=== PATIENT | male | born 1970 | race Caucasian/White ===

== ENCOUNTER 2018-10-15 11:08 | Day surgery (SDC) | payer OTHER ==
[~2018-10-15] VITALS: Ht 185.4 cm; Wt 353.0 kg
--- NOTE | 2018-10-15 11:56 | NUR ---
10/15/18 1156 Corrine Caal FIRST IV UNSUCCESS IN R WRIST SECOND IV SUCCESS IN R AC
[2018-10-15] MEDS ORDERED: VICODIN 5-3001 EACH (12:00)
[2018-10-15] MEDS ORDERED: CLEM1.34 (12:01)
== END 2018-10-15 12:22 | disposition home or self-care (01) ==
LOC: ORSCSDS 11:08
DX: R10.9 Unspecified abdominal pain (principal); Z53.9 Procedure and treatment not carried out, unspecified reason; K92.1 Melena
CPT/HCPCS: 82947; J7120

== ENCOUNTER → 2018-10-17 | Outpatient (CLI) | payer OTHER ==
[~2018-10-17] MED LIST: CLEM1.34; VICODIN 5-3001 EACH
[2018-10-17 09:05] LABS: BASOPHILS ABSOLUTE AUTO 0.06 K/mm3 (0.00-0.23); BASOPHILS PERCENT AUTO 1 % (0-2); EOSINOPHILS ABSOLUTE AUTO 0.12 K/mm3 (0.00-0.68); EOSINOPHILS PERCENT AUTO 1 % (0-6); Hematocrit 48.8 % (37.0-53.0); Hemoglobin 17.3 g/dL (13.5-17.5); IMMATURE GRAN ABSOLUTE AUTO 0.03 K/mm3 (0.00-0.10); IMMATURE GRAN PERCENT AUTO 0 % (0-1); LYMPHOCYTES ABSOLUTE AUTO 2.14 K/mm3 (0.84-5.20); LYMPHOCYTES PERCENT AUTO 19 % (21-46); MONOCYTES ABSOLUTE AUTO 0.58 K/mm3 (0.16-1.47); MONOCYTES PERCENT AUTO 5 % (4-13); Mean Corpuscular HGB 31.6 pg (26.0-34.0); Mean Corpuscular HGB Conc 35.5 g/dL (31.5-36.5); Mean Corpuscular Volume 89 fL (80-100); Mean Platelet Volume 10.7 fL (9.1-12.4); NEUTROPHILS ABSOLUTE AUTO 8.27 K/mm3 (1.96-9.15); NEUTROPHILS PERCENT AUTO 74 % (41-73); Platelet Count 274 K/mm3 (150-400); RDW Coefficient Variation 12.3 % (11.7-14.2); RDW Standard Deviation 39.8 fL (35.1-46.3); Red Blood Cell Count 5.48 M/mm3 (4.30-5.90)
[2018-10-17 09:13] LABS: Alanine Aminotransfer (ALT/SGP 64 U/L (12-78); Albumin, Blood 4.6 g/dL (3.4-5.0); Albumin/Globulin Ratio 1.2 (0.8-1.8); Alk Phos 93 U/L (40-126); Anion Gap 15 mmol/L (6-16); Aspartate Aminotrans (AST/SGOT 30 U/L (12-37); Bilirubin, Total 0.5 mg/dL (0.1-1.0); Blood Urea Nitrogen 10 mg/dL (8-24); Bun/Creatinine Ratio 9.1 (12.0-20.0); CO2, Blood 23 mmol/L (21-32); Calcium, Blood 8.7 mg/dL (8.5-10.1); Chloride, Blood 100 mmol/L (98-108); Globulin, Blood 3.8 g/dL (2.2-4.0); Glomerular Filtration Rate >60 (60-); Glucose, Blood 174 mg/dL (70-99); Potassium, Blood 3.9 mmol/L (3.5-5.5); Sodium, Blood 138 mmol/L (136-145); Total Protein, Blood 8.4 g/dL (6.4-8.2)
== END | disposition home or self-care (01) ==
LOC: LAB SHORT 08:55 → LAB EV 08:55
PROVIDERS: Physician Assistant
DX: M79.675 Pain in left toe(s) (principal)
CPT/HCPCS: 80053; 84550; 85025

== ENCOUNTER 2018-11-10 17:13 | Observation (INO) | payer OTHER ==
[~2018-11-10] VITALS: Ht 185.4 cm; Wt 160.2 kg
[~2018-11-10 17:13] MED LIST changes: +CETI5 PO; -CLEM1.34
[2018-11-10] MEDS ORDERED: ZESTORETIC 20-251 EA PO (17:50)
[2018-11-10] MEDS ORDERED: Norco 5-325 Ta1 EACH PO (17:50)
[2018-11-10] MEDS ORDERED: Zestril40 MG (17:50)
[2018-11-10] MEDS ORDERED: Indomethacin50 MG PO (17:50)
[2018-11-10 18:13] LABS: BASOPHILS ABSOLUTE AUTO 0.06 K/mm3 (0.00-0.23); BASOPHILS PERCENT AUTO 1 % (0-2); EOSINOPHILS ABSOLUTE AUTO 0.25 K/mm3 (0.00-0.68); EOSINOPHILS PERCENT AUTO 3 % (0-6); Hematocrit 46.1 % (37.0-53.0); Hemoglobin 15.6 g/dL (13.5-17.5); IMMATURE GRAN ABSOLUTE AUTO 0.01 K/mm3 (0.00-0.10); IMMATURE GRAN PERCENT AUTO 0 % (0-1); LYMPHOCYTES ABSOLUTE AUTO 2.71 K/mm3 (0.84-5.20); LYMPHOCYTES PERCENT AUTO 33 % (21-46); MONOCYTES ABSOLUTE AUTO 0.47 K/mm3 (0.16-1.47); MONOCYTES PERCENT AUTO 6 % (4-13); Mean Corpuscular HGB 31.5 pg (26.0-34.0); Mean Corpuscular HGB Conc 33.8 g/dL (31.5-36.5); Mean Corpuscular Volume 93 fL (80-100); Mean Platelet Volume 10.2 fL (9.1-12.4); NEUTROPHILS ABSOLUTE AUTO 4.78 K/mm3 (1.96-9.15); NEUTROPHILS PERCENT AUTO 58 % (41-73); Platelet Count 226 K/mm3 (150-400); RDW Coefficient Variation 12.2 % (11.7-14.2); RDW Standard Deviation 41.7 fL (35.1-46.3); Red Blood Cell Count 4.96 M/mm3 (4.30-5.90); White Blood Cell Count 8.28 K/mm3 (4.00-11.30)
[2018-11-10 18:35] LABS: Alanine Aminotransfer (ALT/SGP 61 U/L (12-78); Albumin, Blood 4.3 g/dL (3.4-5.0); Albumin/Globulin Ratio 1.3 (0.8-1.8); Alk Phos 77 U/L (50-136); Anion Gap 7 mmol/L (6-16); Aspartate Aminotrans (AST/SGOT 29 U/L (12-37); Bilirubin, Total 0.5 mg/dL (0.1-1.0); Blood Urea Nitrogen 24 mg/dL (8-24); Bun/Creatinine Ratio 27.3 (12.0-20.0); CO2, Blood 28 mmol/L (21-32); Calcium, Blood 9.5 mg/dL (8.5-10.1); Chloride, Blood 101 mmol/L (98-108); Creatinine, Blood 0.88 mg/dL (0.60-1.20); Globulin, Blood 3.4 g/dL (2.2-4.0); Glomerular Filtration Rate >60 (60-); Glucose, Blood 166 mg/dL (70-99); Sodium, Blood 136 mmol/L (136-145); Total Protein, Blood 7.7 g/dL (6.4-8.2); Troponin I <0.015 ng/mL (0.000-0.040)
[2018-11-10] MEDS ORDERED: LISI20 PO (19:41)
[2018-11-10] MEDS ORDERED: THERA1 EACH PO (19:42)
--- NOTE | 2018-11-10 22:57 | NUR ---
2200 CALLED TO FIRE DISPATCHER, THEY RELATE NSR RATE 60
[2018-11-11 02:23] LABS: CHOL/HDL RATIO 4.1; Cholesterol 155 mg/dL (50-200); HDL Cholesterol 38 mg/dL (>39); LDL/HDL RATIO 2.2; Low Density Lipoprotein Chol 85 mg/dL (0-110); Triglycerides 158 mg/dL (30-160); Very Low Density Lipoprot Chol 31 mg/dL (6-32)
--- NOTE | 2018-11-11 03:27 | NUR ---
NOC SHIFT SUMMARY PT ADMITTED THIS NIGHT FOR CHEST PAIN ONGOING FOR THE PAST TWO DAYS. 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 STATES HE HAS A SEDENTARY POSITION. DENIES PAIN SINCE TIME OF COMING TO FLOOR. THUS FAR HIS TROPONINS HAVE BEEN NEGATIVE. TELE SHOWS NSR RATE 60. ORTHOS SHOW PULSE INCREASE FROM 57 TO 100 FROM LAYING TO STANDING. HE DOES STATE THAT HE FEELS OFF AND THAT HE FEELS SLIGHTLY DIZZY. HE APPEARS IN NO ACUTE DISTRESS. HAS BEEN NPO SINCE MIDNIGHT. WILL CONTINUE TO MONITOR.
--- NOTE | 2018-11-11 19:33 | NUR ---
SHIFT SUMMARY: NO ACUTE CHANGES TO REPORT THIS SHIFT. PT A&O; CALM AND COOPERATIVE WITH CARE. NO C/O PAIN OR NAUSEA THIS SHIFT. PATIENT UP WITH STANDBY ASSIST TO BATHROOM. NUCLEAR STRESS TEST PART 1 THIS SHIFT; EXPECTED PART TWO TOMORROW, Monday. REPORT GIVEN TO ONCOMING RN.
--- NOTE | 2018-11-12 05:13 | NUR ---
CHEMICAL PROCESS ANALYST SUMMARY NO ACUTE CHANGES THIS SHIFT. PT AAOX4 AND INDEPENDENT IN HIS ROOM. DENIES CP TONIGHT. GAVE PAIN MEDS FOR CHRONIC L KNEE AND LEG PAIN, PT ALSO REPORTS A NEW PAIN ON TOP OF L FOOT. GAVE PRN COLACE PER PT REQUEST AFTER NO BM IN SEVERAL DAYS. PT TO HAVE 2ND PART OF STRESS TEST LATER TODAY. VSS, WILL CONTINUE TO MONITOR.
--- NOTE | 2018-11-12 17:34 | NUR ---
SHIFT SUMMARY PT INDEPENDENT IN ROOM. PT TO STAY THE NIGHT FOR A CARDIOLOGY CONSULT. DR. Tl MURRAY SPOKE WITH PT AND GAVE PT AN UPDATE OF CURRENT CONDITION. AT BEDSIDE.
--- NOTE | 2018-11-13 06:31 | NUR ---
Rn summary: Patient is alert, oriented and pleasant. Pt is feeling anxious due to receiving info from doctor that he had some irregularity on his heart scan. Pt had received ativan at 1800. He c/o some "heaviness" to chest but felt it was anxiety related. Pt vital signs have been stable. Pt did receive [place] 2 tabs at 2150 for legs, knees and chest with good relief . Did sleep until 0100. Pt medicated with Ativan 2 mg PO at 0300 and has been resting since. Tele shows SR rate 75. Vital signs are stable. Call light in reach.
--- NOTE | 2018-11-13 08:26 | NUR ---
ECHO IN PROGRESS.
--- NOTE | 2018-11-13 08:54 | NUR ---
PT TO [facility].
--- NOTE | 2018-11-13 08:55 | NUR ---
ECHOCARDIOGRAM COMPLETE
[2018-11-13 09:04] LABS: International Normalized Ratio 1.01; Prothrombin Time Results 10.7 Sec (9.7-11.5)
--- NOTE | 2018-11-13 11:08 | NUR ---
REPORT CALLED TO PCU.
--- NOTE | 2018-11-13 11:30 | NUR ---
PT ARRIVED AT 1130 BY BED. RIGHT RADIAL PUNCTURE, TR BAND, AND ARM BOARD IN PLACE AND WNL. PULSES ARE STRONG, FREE OF BLEEDING OR HEMATOMA. PT A BIT TIRED, BUT PAIN FREE, CALL LIGHT IN REACH, BED IN LOWEST POSITION, AND PT EDUCATED TO SAFETY PROTOCOL. WILL BEGIN REMOVING AIR AT 1200, AND CONTINUE TO MONITOR.
--- NOTE | 2018-11-13 18:27 | NUR ---
SHIFT SUMMARY PT ARRIVED ON FLOOR AT 1130. HAS BEEN A&OX3, AND FREE OF PRESENTING SYMPTOMS SINCE BEING ON FLOOR. VENIPUNCTURE SITE ON R. RADIAL HAS BEEN FREE BLEEDING OR HEMATOMA. PULSES ARE GOOD. TR BAND WAS REMOVED AT 1800, SITE CLEANED, ADN WINDOW DRESSING AND ARM BOARD PLACED. PT IS CURRENTLY SITTING UP AND EATING DINNER, WHILE RECEIVING THE REST OF HIS IV ONE BAG OF IV NS. BED IN LOWEST POSITION, CALL LIGHT IN REACH, AND PT EDCUATED TO SAFETY PRECAUTIONS.
--- NOTE | 2018-11-13 19:40 | NUR ---
ASSUMED CARED PT RESTING IN ROOM COMFORTABLY AT THIS TIME. PER DAY SHIFT PT HAD ANGIO TODAY W/ R WRIST SITE FOR TR BAND. AT THIS TIME TR BAND DEFLATED AND REMOVED, ARM BOARD IN PLACE. PT REPORTS NO PAIN TO AREA, SITE INSPECTED W/ DAY SHIFT RN AND STUDENT, SITE WNL, NO HEMATOMAS NOTED, TEGADERM IN PLACE. RESP EVEN UNLABORED ON RA W/ SATS >95%. PT DENIES CP AT THIS TIME. PT INDEPENDENT TO RR. CALL LIGHT IN REACH, PT CALLS APPROPRIATELY.
[2018-11-14 04:54] LABS: Anion Gap 4 mmol/L (6-16); Blood Urea Nitrogen 16 mg/dL (8-24); CO2, Blood 28 mmol/L (21-32); Calcium, Blood 8.9 mg/dL (8.5-10.1); Chloride, Blood 105 mmol/L (98-108); Creatinine, Blood 0.84 mg/dL (0.60-1.20); Glomerular Filtration Rate >60 (60-); Glucose, Blood 109 mg/dL (70-99); Potassium, Blood 4.2 mmol/L (3.5-5.5); Sodium, Blood 137 mmol/L (136-145)
--- NOTE | 2018-11-14 06:24 | NUR ---
SHIFT SUMMARY PT SLEEPING IN ROOM COMFORTABLY AT THIS TIME. NO ACUTE CHANGES IN STATUS T/O NIGHT. PT SLEPT WELL, NO COMPLAINTS T/O NIGHT. TR BAND SITE WNL, NO HEMATOMA NOTED. PT DENIED ANY CP T/O NIGHT. RESP EVEN UNLABORED ON RA W/ SATS >95%. DENIED NEEDS T/O NIGHT. CALL LIGHT IN REACH. PT INDEPENDENT.
[2018-11-14] MEDS ORDERED: ASPI325 PO (09:54)
[2018-11-14] MEDS ORDERED: ACET325 PO (09:54)
--- NOTE | 2018-11-14 10:38 | NUR ---
PT DISCHARGED. PT DISCHARGED AT 1030. PT IN STABLE CONDITION WITH VSS. PT & EDUCATED ON DC INSTRUCTIONS. THIS RN WENT OVER POST ANGIO ENTRY SITE CARE. PT & STATED NO FURTHER QUESTIONS. PT STATED HE WOULD PREFER TO MAKE HIS OWN APPOINTMENT FOR CARIOLOGY FOLLOW UP. NUMBER PROVIDED. NO OTHER CHANGES IN ASSESSMENT BEFORE DC. IV REMOVED & INTACT. PT WHEELED OUT BY REQUIREMENTS ANALYST & DRIVEN HOME BY .
== END 2018-11-14 13:34 | disposition home or self-care (01) ==
LOC: ER 17:13 → MEDS 17:14 → ER 17:14 → MEDS 17:14 → PCU 17:15 → MEDS 21:35 → PCU 11-13 09:24 → MEDS 11-13 09:24 → PCU 11-13 09:25
PROVIDERS: Emergency Medicine; Family Medicine; Internal Medicine Cardiovascular Disease; ADMIT Hospitalist
DX: I20.0 Unstable angina (principal); E11.9 Type 2 diabetes mellitus without complications; E66.01 Morbid (severe) obesity due to excess calories; D75.1 Secondary polycythemia; R00.1 Bradycardia, unspecified; R42 Dizziness and giddiness; E66.9 Obesity, unspecified; M10.9 Gout, unspecified; I11.9 Hypertensive heart disease without heart failure; Z79.82 Long term (current) use of aspirin; Z79.899 Other long term (current) drug therapy
CPT/HCPCS: 36415; 36416; 71046; 78452; 80048; 80053; 80061; 84484; 85025; 85610; 86850; 86900; 86901; 93005; 93010; 93017; 93306; 93458; 96372; 99152; 99153; 99285-25; A9270-GY; A9500; C1769; C1894; J0280; J0690; J0706; J1644; J1650; J2250; J2785; J3010; J7030; Q9967

== ENCOUNTER → 2019-10-04 | Outpatient (CLI) | payer OTHER ==
[~2019-10-04] MED LIST changes: +ACET325 PO; +ASPI325 PO; +Indomethacin50 MG PO; +LISI20 PO; +Norco 5-325 Ta1 EACH PO; +THERA1 EACH PO; +ZESTORETIC 20-251 EA PO; +Zestril40 MG
[2019-10-04 10:38] LABS: BASOPHILS ABSOLUTE AUTO 0.05 K/mm3 (0.00-0.23); BASOPHILS PERCENT AUTO 1 % (0-2); EOSINOPHILS ABSOLUTE AUTO 0.15 K/mm3 (0.00-0.68); EOSINOPHILS PERCENT AUTO 2 % (0-6); Hematocrit 44.4 % (37.0-53.0); Hemoglobin 15.5 g/dL (13.5-17.5); IMMATURE GRAN ABSOLUTE AUTO 0.03 K/mm3 (0.00-0.10); IMMATURE GRAN PERCENT AUTO 0 % (0-1); LYMPHOCYTES ABSOLUTE AUTO 1.98 K/mm3 (0.84-5.20); LYMPHOCYTES PERCENT AUTO 24 % (21-46); MONOCYTES ABSOLUTE AUTO 0.53 K/mm3 (0.16-1.47); MONOCYTES PERCENT AUTO 6 % (4-13); Mean Corpuscular HGB 32.1 pg (26.0-34.0); Mean Corpuscular HGB Conc 34.9 g/dL (31.5-36.5); Mean Corpuscular Volume 92 fL (80-100); Mean Platelet Volume 10.6 fL (9.1-12.4); NEUTROPHILS ABSOLUTE AUTO 5.63 K/mm3 (1.96-9.15); NEUTROPHILS PERCENT AUTO 67 % (41-73); Platelet Count 183 K/mm3 (150-400); RDW Coefficient Variation 12.2 % (11.7-14.2); Red Blood Cell Count 4.83 M/mm3 (4.30-5.90); White Blood Cell Count 8.37 K/mm3 (4.00-11.30)
[2019-10-04 10:50] LABS: Alanine Aminotransfer (ALT/SGP 42 U/L (12-78); Albumin, Blood 4.4 g/dL (3.4-5.0); Albumin/Globulin Ratio 1.1 (0.8-1.8); Alk Phos 73 U/L (40-126); Anion Gap 14 mmol/L (6-16); Aspartate Aminotrans (AST/SGOT 27 U/L (12-37); Bilirubin, Total 0.7 mg/dL (0.1-1.0); Blood Urea Nitrogen 14 mg/dL (8-24); Bun/Creatinine Ratio 13.9 (12.0-20.0); CO2, Blood 25 mmol/L (21-32); Calcium, Blood 9.5 mg/dL (8.5-10.1); Chloride, Blood 100 mmol/L (98-108); Creatinine, Blood 1.01 mg/dL (0.60-1.20); Globulin, Blood 3.9 g/dL (2.2-4.0); Glomerular Filtration Rate >60 (60-); Glucose, Blood 267 mg/dL (70-99); Potassium, Blood 4.3 mmol/L (3.5-5.5); Sodium, Blood 139 mmol/L (136-145); Total Protein, Blood 8.3 g/dL (6.4-8.2)
[2019-10-04 12:31] LABS: International Normalized Ratio 1.02; Prothrombin Time Results 10.9 Sec (9.7-11.5)
== END | disposition home or self-care (01) ==
LOC: LAB SHORT 10:32 → LAB EV 10:32
PROVIDERS: General Practice
DX: I82.409 Acute embolism and thrombosis of unspecified deep veins of unspecified lower extremity (principal)
CPT/HCPCS: 80053; 85025; 85610; 85730

== ENCOUNTER → 2019-12-04 | Outpatient (CLI) | payer OTHER ==
[2019-12-04 09:24] LABS: BASOPHILS ABSOLUTE AUTO 0.07 K/mm3 (0.00-0.23); BASOPHILS PERCENT AUTO 1 % (0-2); EOSINOPHILS ABSOLUTE AUTO 0.21 K/mm3 (0.00-0.68); EOSINOPHILS PERCENT AUTO 3 % (0-6); Hematocrit 47.6 % (37.0-53.0); Hemoglobin 16.3 g/dL (13.5-17.5); IMMATURE GRAN ABSOLUTE AUTO 0.02 K/mm3 (0.00-0.10); IMMATURE GRAN PERCENT AUTO 0 % (0-1); LYMPHOCYTES ABSOLUTE AUTO 2.17 K/mm3 (0.84-5.20); LYMPHOCYTES PERCENT AUTO 28 % (21-46); MONOCYTES ABSOLUTE AUTO 0.59 K/mm3 (0.16-1.47); MONOCYTES PERCENT AUTO 8 % (4-13); Mean Corpuscular HGB 31.3 pg (26.0-34.0); Mean Corpuscular HGB Conc 34.2 g/dL (31.5-36.5); Mean Corpuscular Volume 91 fL (80-100); Mean Platelet Volume 10.6 fL (9.1-12.4); NEUTROPHILS PERCENT AUTO 61 % (41-73); Platelet Count 236 K/mm3 (150-400); RDW Coefficient Variation 12.3 % (11.7-14.2); RDW Standard Deviation 40.2 fL (35.1-46.3); Red Blood Cell Count 5.21 M/mm3 (4.30-5.90); White Blood Cell Count 7.76 K/mm3 (4.00-11.30)
[2019-12-04 09:38] LABS: Alanine Aminotransfer (ALT/SGP 71 U/L (12-78); Albumin, Blood 4.6 g/dL (3.4-5.0); Albumin/Globulin Ratio 1.2 (0.8-1.8); Alk Phos 86 U/L (40-126); Anion Gap 13 mmol/L (6-16); Aspartate Aminotrans (AST/SGOT 52 U/L (12-37); Bilirubin, Total 0.5 mg/dL (0.1-1.0); Blood Urea Nitrogen 10 mg/dL (8-24); CO2, Blood 27 mmol/L (21-32); Calcium, Blood 9.3 mg/dL (8.5-10.1); Chloride, Blood 99 mmol/L (98-108); Creatinine, Blood 1.11 mg/dL (0.60-1.20); Globulin, Blood 3.8 g/dL (2.2-4.0); Glomerular Filtration Rate >60 (60-); Glucose, Blood 229 mg/dL (70-99); Potassium, Blood 4.4 mmol/L (3.5-5.5); Sodium, Blood 139 mmol/L (136-145); Total Protein, Blood 8.4 g/dL (6.4-8.2)
== END | disposition home or self-care (01) ==
LOC: LAB EV 09:18 → LAB SHORT 09:18
PROVIDERS: Physician Assistant
DX: R10.32 Left lower quadrant pain (principal)
CPT/HCPCS: 80053; 83690; 85025

== ENCOUNTER 2020-09-04 07:08 | Emergency (ER) | payer OTHER ==
[~2020-09-04] VITALS: Ht 185.4 cm; Wt 154.2 kg
[~2020-09-04 07:08] MED LIST changes: +ALBU90OI INH; +AMLO5 PO; +CYCLOBENZAPRINE5 MG PO; +ELIQUIS5 MG PO; +HYDR1TAB94 PO; +JARDIANCE25 MG PO; +Lisinopril2.5 MG; +ZESTRIL40 M1 PO
[2020-09-04] MEDS ORDERED: AMOCLA500 (07:23)
[2020-09-04] MEDS ORDERED: SULTRIDS PO (07:23)
== END 2020-09-04 08:00 | disposition home or self-care (01) ==
LOC: ER 07:08
DX: L02.412 Cutaneous abscess of left axilla (principal); E11.9 Type 2 diabetes mellitus without complications; Z88.8 Allergy status to other drugs, medicaments and biological substances; Z79.01 Long term (current) use of anticoagulants
CPT/HCPCS: 10060; 82947; 99283-25

== ENCOUNTER 2021-01-15 14:59 | Emergency (ER) | payer OTHER ==
[~2021-01-15] VITALS: Ht 185.4 cm; Wt 150.6 kg
[~2021-01-15 14:59] MED LIST changes: -AMOCLA875 PO
[2021-01-15] MEDS ORDERED: Norco 5-325 Ta1 EACH PO (20:10)
[2021-01-15] MEDS ORDERED: AMOCLA875 PO (20:10)
== END 2021-01-15 20:21 | disposition home or self-care (01) ==
LOC: ER 14:59
DX: K61.0 Anal abscess (principal); E11.9 Type 2 diabetes mellitus without complications; Z88.2 Allergy status to sulfonamides
CPT/HCPCS: 10060; 46040; 96374-59; 96375-59; 99282-25; A9270; J1170; J2405; J7030

== ENCOUNTER → 2021-01-15 | Outpatient (CLI) | payer OTHER ==
[~2021-01-15] MED LIST changes: +AMOCLA500; +AMOCLA875 PO; +SULTRIDS PO
[2021-01-15 12:18] LABS: Anion Gap 11 mmol/L (6-16); Blood Urea Nitrogen 14 mg/dL (8-24); Bun/Creatinine Ratio 13.7 (12.0-20.0); CO2, Blood 26 mmol/L (21-32); Calcium, Blood 9.9 mg/dL (8.5-10.1); Chloride, Blood 101 mmol/L (98-108); Creatinine, Blood 1.02 mg/dL (0.60-1.20); Glomerular Filtration Rate >60 (60-); Glucose, Blood 143 mg/dL (70-99); Potassium, Blood 4.2 mmol/L (3.5-5.5); Sodium, Blood 138 mmol/L (136-145)
[2021-01-15 12:19] LABS: BASOPHILS ABSOLUTE AUTO 0.07 K/mm3 (0.00-0.23); BASOPHILS PERCENT AUTO 1 % (0-2); EOSINOPHILS ABSOLUTE AUTO 0.09 K/mm3 (0.00-0.68); EOSINOPHILS PERCENT AUTO 1 % (0-6); Hematocrit 53.9 % (37.0-53.0); Hemoglobin 17.6 g/dL (13.5-17.5); IMMATURE GRAN ABSOLUTE AUTO 0.04 K/mm3 (0.00-0.10); IMMATURE GRAN PERCENT AUTO 0 % (0-1); LYMPHOCYTES ABSOLUTE AUTO 2.04 K/mm3 (0.84-5.20); LYMPHOCYTES PERCENT AUTO 18 % (21-46); MONOCYTES ABSOLUTE AUTO 0.92 K/mm3 (0.16-1.47); MONOCYTES PERCENT AUTO 8 % (4-13); Mean Corpuscular HGB 33.1 pg (26.0-34.0); Mean Corpuscular HGB Conc 32.7 g/dL (31.5-36.5); Mean Corpuscular Volume 101 fL (80-100); Mean Platelet Volume 10.5 fL (9.1-12.4); NEUTROPHILS ABSOLUTE AUTO 8.46 K/mm3 (1.96-9.15); NEUTROPHILS PERCENT AUTO 73 % (41-73); Platelet Count 191 K/mm3 (150-400); RDW Standard Deviation 50.8 fL (35.1-46.3); Red Blood Cell Count 5.32 M/mm3 (4.30-5.90); White Blood Cell Count 11.62 K/mm3 (4.00-11.30)
== END | disposition home or self-care (01) ==
LOC: LAB SHORT 11:54 → LAB 11:54
PROVIDERS: Physician Assistant Surgical
DX: K61.0 Anal abscess (principal)
CPT/HCPCS: 80048; 85025

== ENCOUNTER 2021-09-22 07:02 | Emergency (ER) | payer OTHER ==
[~2021-09-22] VITALS: Ht 185.4 cm; Wt 149.7 kg
[~2021-09-22 07:02] MED LIST changes: +AMOCLA875 PO
[2021-09-22 08:00] LABS: BASOPHILS ABSOLUTE AUTO 0.07 K/mm3 (0.00-0.23); BASOPHILS PERCENT AUTO 1 % (0-2); EOSINOPHILS PERCENT AUTO 1 % (0-6); Hematocrit 52.5 % (37.0-53.0); Hemoglobin 18.1 g/dL (13.5-17.5); IMMATURE GRAN ABSOLUTE AUTO 0.05 K/mm3 (0.00-0.10); IMMATURE GRAN PERCENT AUTO 0 % (0-1); LYMPHOCYTES ABSOLUTE AUTO 2.08 K/mm3 (0.84-5.20); LYMPHOCYTES PERCENT AUTO 16 % (21-46); MONOCYTES ABSOLUTE AUTO 0.88 K/mm3 (0.16-1.47); MONOCYTES PERCENT AUTO 7 % (4-13); Mean Corpuscular HGB Conc 34.5 g/dL (31.5-36.5); Mean Corpuscular Volume 93 fL (80-100); Mean Platelet Volume 10.1 fL (9.1-12.4); NEUTROPHILS ABSOLUTE AUTO 9.65 K/mm3 (1.96-9.15); NEUTROPHILS PERCENT AUTO 75 % (41-73); Platelet Count 250 K/mm3 (150-400); RDW Coefficient Variation 13.1 % (11.7-14.2); RDW Standard Deviation 44.5 fL (35.1-46.3); Red Blood Cell Count 5.65 M/mm3 (4.30-5.90); White Blood Cell Count 12.83 K/mm3 (4.00-11.30)
[2021-09-22] MEDS ORDERED: OZEMPIC0.25 MG/0. SC (08:00)
[2021-09-22 08:08] LABS: Alanine Aminotransfer (ALT/SGP 46 U/L (12-78); Albumin, Blood 4.1 g/dL (3.4-5.0); Alk Phos 76 U/L (50-136); Anion Gap 8 mmol/L (6-16); Aspartate Aminotrans (AST/SGOT 21 U/L (12-37); Bilirubin, Total 0.6 mg/dL (0.1-1.0); Blood Urea Nitrogen 17 mg/dL (8-24); Bun/Creatinine Ratio 20.2 (12.0-20.0); CO2, Blood 25 mmol/L (21-32); Calcium, Blood 9.5 mg/dL (8.5-10.1); Chloride, Blood 103 mmol/L (98-108); Creatinine, Blood 0.84 mg/dL (0.60-1.20); Glomerular Filtration Rate >60 (60-); Glucose, Blood 196 mg/dL (70-99); Potassium, Blood 3.9 mmol/L (3.5-5.5); Sodium, Blood 136 mmol/L (136-145); Total Protein, Blood 8.1 g/dL (6.4-8.2)
[2021-09-22 08:53] LABS: Source, Urine Clean Catch
[2021-09-22 08:58] LABS: Appearance, Urine Clear (Clear); Bilirubin, Urine Neg (Neg); Blood, Urine Neg (Neg); Color, Urine Yellow (P-Yellow); Glucose Qualitative, Urine 4+ (Neg); Ketones, Urine 2+ (Neg); Leukocyte Esterase, Urine Neg (Neg); Nitrite, Urine Neg (Neg); Protein, Urine Neg (Neg); Specific Gravity, Urine 1.015 (1.003-1.022); Urobilinogen, Urine NORM (Normal)
[2021-09-22] MEDS ORDERED: ONDA4ODT MM (10:04)
[2021-09-22] MEDS ORDERED: Cipro500 MG PO (10:04)
[2021-09-22] MEDS ORDERED: Norco 5-325 Ta1 EACH PO (10:04)
[2021-09-22] MEDS ORDERED: Flagyl500 MG PO (10:04)
== END 2021-09-22 11:51 | disposition home or self-care (01) ==
LOC: ER 07:02
PROVIDERS: Emergency Medicine
DX: K52.9 Noninfective gastroenteritis and colitis, unspecified (principal); E86.0 Dehydration; E11.9 Type 2 diabetes mellitus without complications; Z79.899 Other long term (current) drug therapy
CPT/HCPCS: 36415; 74177; 80053; 81003; 83605; 83690; 85025; 96374; 96375; 99284-25; A9270; J1170; J2405; J7030; Q9967

== ENCOUNTER 2022-09-22 06:34 | Emergency (ER) | payer OTHER ==
[~2022-09-22] VITALS: Ht 185.4 cm; Wt 147.0 kg
[~2022-09-22 06:34] MED LIST changes: +Cipro500 MG PO; +Flagyl500 MG PO; +ONDA4ODT MM; +OZEMPIC0.25 MG/0. SC
[2022-09-22] MEDS ORDERED: Venlafaxine HC100 MG PO (07:14)
[2022-09-22 09:03] LABS: BASOPHILS ABSOLUTE AUTO 0.05 K/mm3 (0.00-0.23); BASOPHILS PERCENT AUTO 1 % (0-2); EOSINOPHILS PERCENT AUTO 1 % (0-6); Hematocrit 49.5 % (37.0-53.0); Hemoglobin 17.3 g/dL (13.5-17.5); IMMATURE GRAN ABSOLUTE AUTO 0.02 K/mm3 (0.00-0.10); IMMATURE GRAN PERCENT AUTO 0 % (0-1); LYMPHOCYTES ABSOLUTE AUTO 1.76 K/mm3 (0.84-5.20); LYMPHOCYTES PERCENT AUTO 21 % (21-46); MONOCYTES ABSOLUTE AUTO 0.69 K/mm3 (0.16-1.47); MONOCYTES PERCENT AUTO 8 % (4-13); Mean Corpuscular HGB 31.3 pg (26.0-34.0); Mean Corpuscular HGB Conc 34.9 g/dL (31.5-36.5); Mean Corpuscular Volume 90 fL (80-100); Mean Platelet Volume 9.8 fL (9.1-12.4); NEUTROPHILS PERCENT AUTO 69 % (41-73); Platelet Count 211 K/mm3 (150-400); RDW Coefficient Variation 11.9 % (11.7-14.2); RDW Standard Deviation 39.1 fL (35.1-46.3); Red Blood Cell Count 5.52 M/mm3 (4.30-5.90); White Blood Cell Count 8.52 K/mm3 (4.00-11.30)
[2022-09-22 09:22] LABS: Albumin/Globulin Ratio 1.1 (0.8-1.8); Bilirubin, Total 0.7 mg/dL (0.1-1.0); Bun/Creatinine Ratio 15.5 (12.0-20.0); C-REACTIVE PROTEIN, EXT RANGE 1.18 mg/dL (0.000-0.300); Calcium, Blood 9.2 mg/dL (8.5-10.1); Creatinine, Blood 0.71 mg/dL (0.60-1.20); Globulin, Blood 3.7 g/dL (2.2-4.0); Potassium, Blood 4.1 mmol/L (3.5-5.5); Total Protein, Blood 7.7 g/dL (6.4-8.2)
[2022-09-22] MEDS ORDERED: Bactrim Ds Tab1 EACH PO (10:03)
[2022-09-22 14:00] VITALS: BP 129/78
== END 2022-09-22 14:06 | disposition home or self-care (01) ==
LOC: ER 06:34
PROVIDERS: Physician Assistant
DX: L03.311 Cellulitis of abdominal wall (principal); Z88.8 Allergy status to other drugs, medicaments and biological substances; Z79.899 Other long term (current) drug therapy; E11.9 Type 2 diabetes mellitus without complications
CPT/HCPCS: 36415; 74177; 80053; 85025; 86140; 96365-59; 96366; 99283-25; J3370; J7050; Q9967

== ENCOUNTER → 2023-01-30 | Outpatient (CLI) | payer OTHER ==
[~2023-01-30] MED LIST changes: +Bactrim Ds Tab1 EACH PO; +Venlafaxine HC100 MG PO
[2023-01-30 11:29] LABS: BASOPHILS ABSOLUTE AUTO 0.08 K/mm3 (0.00-0.23); BASOPHILS PERCENT AUTO 1 % (0-2); EOSINOPHILS ABSOLUTE AUTO 0.11 K/mm3 (0.00-0.68); EOSINOPHILS PERCENT AUTO 1 % (0-6); Hematocrit 51.2 % (37.0-53.0); Hemoglobin 17.9 g/dL (13.5-17.5); IMMATURE GRAN ABSOLUTE AUTO 0.04 K/mm3 (0.00-0.10); IMMATURE GRAN PERCENT AUTO 0 % (0-1); LYMPHOCYTES ABSOLUTE AUTO 2.27 K/mm3 (0.84-5.20); LYMPHOCYTES PERCENT AUTO 17 % (21-46); MONOCYTES ABSOLUTE AUTO 0.76 K/mm3 (0.16-1.47); MONOCYTES PERCENT AUTO 6 % (4-13); Mean Corpuscular HGB 31.7 pg (26.0-34.0); Mean Corpuscular Volume 91 fL (80-100); Mean Platelet Volume 10.4 fL (9.1-12.4); NEUTROPHILS ABSOLUTE AUTO 10.48 K/mm3 (1.96-9.15); NEUTROPHILS PERCENT AUTO 76 % (41-73); Platelet Count 234 K/mm3 (150-400); RDW Coefficient Variation 12.6 % (11.7-14.2); RDW Standard Deviation 41.3 fL (35.1-46.3); Red Blood Cell Count 5.64 M/mm3 (4.30-5.90); White Blood Cell Count 13.74 K/mm3 (4.00-11.30)
[2023-01-30 11:40] LABS: Albumin, Blood 4.4 g/dL (3.4-5.0); Albumin/Globulin Ratio 1.1 (0.8-1.8); Bilirubin, Total 0.5 mg/dL (0.1-1.0); Bun/Creatinine Ratio 14.6 (12.0-20.0); Calcium, Blood 9.9 mg/dL (8.5-10.1); Creatinine, Blood 1.03 mg/dL (0.60-1.20); Potassium, Blood 4.3 mmol/L (3.5-5.5); Total Protein, Blood 8.4 g/dL (6.4-8.2)
== END | disposition home or self-care (01) ==
LOC: LAB 11:25 → LAB SHORT 11:25
PROVIDERS: Family Medicine
DX: R10.9 Unspecified abdominal pain (principal)
CPT/HCPCS: 80053; 83690; 85025

== ENCOUNTER 2023-06-14 14:40 | Observation (INO) | payer OTHER ==
[~2023-06-14] VITALS: Ht 185.4 cm; Wt 152.7 kg
[2023-06-14] MEDS ORDERED: OZEMPIC1 MG/0.72 SQ (14:58)
[2023-06-14] MEDS ORDERED: ATORVASTATIN CA20 MG PO (14:59)
[2023-06-14 15:08] LABS: BASOPHILS ABSOLUTE AUTO 0.06 K/mm3 (0.00-0.23); BASOPHILS PERCENT AUTO 1 % (0-2); EOSINOPHILS ABSOLUTE AUTO 0.07 K/mm3 (0.00-0.68); EOSINOPHILS PERCENT AUTO 1 % (0-6); Hematocrit 45.5 % (37.0-53.0); IMMATURE GRAN ABSOLUTE AUTO 0.03 K/mm3 (0.00-0.10); IMMATURE GRAN PERCENT AUTO 0 % (0-1); LYMPHOCYTES ABSOLUTE AUTO 2.27 K/mm3 (0.84-5.20); LYMPHOCYTES PERCENT AUTO 22 % (21-46); MONOCYTES ABSOLUTE AUTO 0.51 K/mm3 (0.16-1.47); MONOCYTES PERCENT AUTO 5 % (4-13); Mean Corpuscular HGB 31.7 pg (26.0-34.0); Mean Corpuscular HGB Conc 35.2 g/dL (31.5-36.5); Mean Corpuscular Volume 90 fL (80-100); Mean Platelet Volume 10.4 fL (9.1-12.4); NEUTROPHILS ABSOLUTE AUTO 7.55 K/mm3 (1.96-9.15); NEUTROPHILS PERCENT AUTO 72 % (41-73); Platelet Count 237 K/mm3 (150-400); RDW Coefficient Variation 12.3 % (11.7-14.2); RDW Standard Deviation 39.8 fL (35.1-46.3); Red Blood Cell Count 5.04 M/mm3 (4.30-5.90); White Blood Cell Count 10.49 K/mm3 (4.00-11.30)
[2023-06-14 15:40] LABS: Albumin, Blood 4.1 g/dL (3.4-5.0); Albumin/Globulin Ratio 1.2 (0.8-1.8); Bilirubin, Total 0.5 mg/dL (0.1-1.0); Bun/Creatinine Ratio 17.4 (12.0-20.0); Calcium, Blood 9.7 mg/dL (8.5-10.1); Creatinine, Blood 0.86 mg/dL (0.60-1.20); Globulin, Blood 3.4 g/dL (2.2-4.0); Potassium, Blood 3.9 mmol/L (3.5-5.5); Total Protein, Blood 7.5 g/dL (6.4-8.2)
[2023-06-14] MEDS ORDERED: VENL150ER PO (19:42)
[2023-06-14] MEDS ORDERED: Norco 5-325 Ta1 EACH PO (19:44)
[2023-06-14 20:49] VITALS: BP 125/83
[2023-06-15 04:37] VITALS: BP 136/92
[2023-06-15 05:08] LABS: Hematocrit 42.1 % (37.0-53.0); Hemoglobin 14.7 g/dL (13.5-17.5); Mean Corpuscular HGB 32.1 pg (26.0-34.0); Mean Corpuscular HGB Conc 34.9 g/dL (31.5-36.5); Mean Corpuscular Volume 92 fL (80-100); Mean Platelet Volume 10.3 fL (9.1-12.4); Platelet Count 220 K/mm3 (150-400); RDW Coefficient Variation 12.2 % (11.7-14.2); RDW Standard Deviation 40.8 fL (35.1-46.3); Red Blood Cell Count 4.58 M/mm3 (4.30-5.90); White Blood Cell Count 8.43 K/mm3 (4.00-11.30)
[2023-06-15 05:40] LABS: Bun/Creatinine Ratio 19.6 (12.0-20.0); Creatinine, Blood 0.87 mg/dL (0.60-1.20); Potassium, Blood 4.1 mmol/L (3.5-5.5)
[2023-06-15 07:42] VITALS: BP 118/77
[2023-06-15 11:26] VITALS: BP 124/79
--- NOTE | 2023-06-15 11:33 | NUR ---
RIGHT CHEST PAIN PT C/O RIGHT CHEST PAIN THAT FEELS LIKE A PULLING SENSATION. PT REPORTS IT IS THE SAME PAIN THAT HE HAD WHEN COMING IN. PT REPORTS PAIN IS A 5/10 AND IT HAS BEEN 2/10. VITALS TAKEN AND WERE WNL. THIS RN CALLED DR. GOMEZ AND NOTIFIED HIM OF PATIENT'S SYMPTOMS AND HIS VITAL SIGNS AT THIS TIME. NO NEW ORDERS AT THIS TIME. CALL LIGHT IN REACH. WILL CONTINUE TO MONITOR.
[2023-06-15 15:25] VITALS: BP 125/84
--- NOTE | 2023-06-15 18:56 | NUR ---
SHIFT SUMMARY NO ACUTE CHANGES THIS SHIFT. MEDICATED FOR RIGHT CHEST PAIN WITH PULLING SENSATION PER EMAR ORDERS. VITAL SIGNS WNL. PT UP TO BATHROOM WITHOUT ASSISTANCE. NO COMPLAINTS AT THIS TIME. CALL LIGHT IN REACH. REPORT GIVEN TO PETEY ANNA.
[2023-06-15 19:08] VITALS: BP 123/74
--- NOTE | 2023-06-16 04:26 | NUR ---
SHIFT SUMMARY 1900: ASSUMED CARE OF PT, REPORT RECEIVED FROM DAY SHIFT. PT IS LAYING IN BED WITH HOB ELEVATED. A/O X4, BREATHING IS EVEN AND UNLABORED, NO ACUTE DISTRESS. TELEMETRY IN PLACE. NRS THROUGHOUT SHIFT. PT COMPLAINS OF PULLING PAIN TO RIGHT SIDE CHEST DURING THE SHIFT, MEDICATED PER EMR. PT IS NPO AFTER MIDNIGHT EXCEPT SIPS. NO CAFEINE OR CHOCOLATE AFTER CHANGE OF SHIFT AT 1900 IN ANTICIPATION OF STRESS TESTING TO BE DONE THIS MORNING. PT HAS NO FURTHER ACUTE EVENTS DURING THE NIGHT. SAFETY MEASURES TAKEN, NEEDS ADDRESSED.
[2023-06-16 04:54] VITALS: BP 135/78
[2023-06-16 05:30] LABS: BASOPHILS ABSOLUTE AUTO 0.07 K/mm3 (0.00-0.23); BASOPHILS PERCENT AUTO 1 % (0-2); EOSINOPHILS PERCENT AUTO 3 % (0-6); Hematocrit 42.6 % (37.0-53.0); Hemoglobin 14.6 g/dL (13.5-17.5); IMMATURE GRAN ABSOLUTE AUTO 0.02 K/mm3 (0.00-0.10); IMMATURE GRAN PERCENT AUTO 0 % (0-1); LYMPHOCYTES PERCENT AUTO 33 % (21-46); MONOCYTES ABSOLUTE AUTO 0.56 K/mm3 (0.16-1.47); MONOCYTES PERCENT AUTO 7 % (4-13); Mean Corpuscular HGB 31.5 pg (26.0-34.0); Mean Corpuscular HGB Conc 34.3 g/dL (31.5-36.5); Mean Corpuscular Volume 92 fL (80-100); Mean Platelet Volume 10.5 fL (9.1-12.4); NEUTROPHILS ABSOLUTE AUTO 4.59 K/mm3 (1.96-9.15); NEUTROPHILS PERCENT AUTO 56 % (41-73); Platelet Count 210 K/mm3 (150-400); RDW Coefficient Variation 12.1 % (11.7-14.2); RDW Standard Deviation 40.3 fL (35.1-46.3); Red Blood Cell Count 4.63 M/mm3 (4.30-5.90); White Blood Cell Count 8.14 K/mm3 (4.00-11.30)
[2023-06-16 05:40] LABS: Bun/Creatinine Ratio 20.5 (12.0-20.0); Creatinine, Blood 0.83 mg/dL (0.60-1.20); Potassium, Blood 3.9 mmol/L (3.5-5.5)
[2023-06-16 08:08] VITALS: BP 121/80
[2023-06-16 15:12] VITALS: BP 127/81
== END 2023-06-16 19:02 | disposition home or self-care (01) ==
LOC: ER 14:40 → MEDS 14:41
PROVIDERS: Internal Medicine; Nurse Practitioner Acute Care; Physician Assistant; ADMIT Internal Medicine
DX: R07.89 Other chest pain (principal); E66.01 Morbid (severe) obesity due to excess calories; E11.9 Type 2 diabetes mellitus without complications; I10 Essential (primary) hypertension; E78.5 Hyperlipidemia, unspecified; G89.29 Other chronic pain; Z88.8 Allergy status to other drugs, medicaments and biological substances; Z79.899 Other long term (current) drug therapy
CPT/HCPCS: 36415; 71045; 78452; 80048; 80053; 82947; 83036; 83880; 84484; 85025; 85027; 93005; 93010; 93017; 93306; 96374; 96375; 96376; 99285-25; A9270; A9500; G0378; J0280; J2270; J2405; J2785; J3010; J7030

== ENCOUNTER → 2023-09-05 | Outpatient (CLI) | payer OTHER ==
[~2023-09-05] MED LIST changes: +ATORVASTATIN CA20 MG PO; +OZEMPIC1 MG/0.72 SQ; +VENL150ER PO
[2023-09-05 14:25] LABS: BASOPHILS ABSOLUTE AUTO 0.07 K/mm3 (0.00-0.23); BASOPHILS PERCENT AUTO 1 % (0-2); EOSINOPHILS ABSOLUTE AUTO 0.07 K/mm3 (0.00-0.68); EOSINOPHILS PERCENT AUTO 1 % (0-6); Hematocrit 48.5 % (37.0-53.0); Hemoglobin 17.1 g/dL (13.5-17.5); IMMATURE GRAN ABSOLUTE AUTO 0.04 K/mm3 (0.00-0.10); IMMATURE GRAN PERCENT AUTO 0 % (0-1); LYMPHOCYTES ABSOLUTE AUTO 2.38 K/mm3 (0.84-5.20); LYMPHOCYTES PERCENT AUTO 23 % (21-46); MONOCYTES ABSOLUTE AUTO 0.69 K/mm3 (0.16-1.47); MONOCYTES PERCENT AUTO 7 % (4-13); Mean Corpuscular HGB 31.3 pg (26.0-34.0); Mean Corpuscular HGB Conc 35.3 g/dL (31.5-36.5); Mean Corpuscular Volume 89 fL (80-100); Mean Platelet Volume 10.7 fL (9.1-12.4); NEUTROPHILS ABSOLUTE AUTO 7.29 K/mm3 (1.96-9.15); NEUTROPHILS PERCENT AUTO 69 % (41-73); Platelet Count 300 K/mm3 (150-400); RDW Coefficient Variation 12.3 % (11.7-14.2); Red Blood Cell Count 5.47 M/mm3 (4.30-5.90); White Blood Cell Count 10.54 K/mm3 (4.00-11.30)
[2023-09-05 14:58] LABS: Albumin, Blood 4.7 g/dL (3.4-5.0); Albumin/Globulin Ratio 1.3 (0.8-1.8); Bilirubin, Total 0.6 mg/dL (0.1-1.0); Bun/Creatinine Ratio 17.4 (12.0-20.0); Creatinine, Blood 0.98 mg/dL (0.60-1.20); Globulin, Blood 3.7 g/dL (2.2-4.0); Potassium, Blood 4.1 mmol/L (3.5-5.5); Thyroid Stimulating Hormone 1.71 uIU/mL (0.360-4.800); Total Protein, Blood 8.4 g/dL (6.4-8.2)
== END | disposition home or self-care (01) ==
LOC: LAB SHORT 14:14 → LAB 14:14
PROVIDERS: Family Medicine
DX: M79.10 Myalgia, unspecified site (principal)
CPT/HCPCS: 80053; 84443; 84484; 85025

== ENCOUNTER 2024-07-17 08:40 | Inpatient (IN) | payer OTHER ==
[~2024-07-17] VITALS: Ht 185.4 cm; Wt 148.5 kg
[~2024-07-17 08:40] MED LIST changes: +DIAZ2 PO; +HYDACE10B PO; -OZEMPIC1 MG/0.72 SQ; +OZEMPIC2 MG/0.75 SC; +Robaxin750 MG PO; +TRAM50 PO; -VENL150ER PO; +VENLAFAXINE HC225 MG PO
[2024-07-17] MEDS ORDERED: NS 1,000 ML IV SCH (09:00)
[2024-07-17] MEDS ORDERED: DiphenhydrAMINE HCl 50 MG/ML 1ML Vial IV ONE (09:00)
[2024-07-17] MEDS ORDERED: Prochlorperazine Edisylate 10 mg Vial IV ONE (09:00)
[2024-07-17 09:28] LABS: BASOPHILS ABSOLUTE AUTO 0.06 K/mm3 (0.00-0.23); BASOPHILS PERCENT AUTO 0 % (0-2); EOSINOPHILS ABSOLUTE AUTO 0.06 K/mm3 (0.00-0.68); EOSINOPHILS PERCENT AUTO 0 % (0-6); Hematocrit 41.9 % (37.0-53.0); Hemoglobin 14.5 g/dL (13.5-17.5); IMMATURE GRAN ABSOLUTE AUTO 0.09 K/mm3 (0.00-0.10); IMMATURE GRAN PERCENT AUTO 1 % (0-1); LYMPHOCYTES ABSOLUTE AUTO 1.82 K/mm3 (0.84-5.20); LYMPHOCYTES PERCENT AUTO 10 % (21-46); MONOCYTES ABSOLUTE AUTO 1.01 K/mm3 (0.16-1.47); MONOCYTES PERCENT AUTO 6 % (4-13); Mean Corpuscular HGB 31.7 pg (26.0-34.0); Mean Corpuscular HGB Conc 34.6 g/dL (31.5-36.5); Mean Corpuscular Volume 92 fL (80-100); Mean Platelet Volume 10.4 fL (9.1-12.4); NEUTROPHILS PERCENT AUTO 83 % (41-73); Platelet Count 269 K/mm3 (150-400); RDW Coefficient Variation 12.4 % (11.7-14.2); RDW Standard Deviation 40.8 fL (35.1-46.3); Red Blood Cell Count 4.58 M/mm3 (4.30-5.90); White Blood Cell Count 17.64 K/mm3 (4.00-11.30)
[2024-07-17 09:51] LABS: Albumin, Blood 3.9 g/dL (3.4-5.0); Albumin/Globulin Ratio 1.3 (0.8-1.8); Bilirubin, Total 0.6 mg/dL (0.1-1.0); Bun/Creatinine Ratio 21.6 (12.0-20.0); Calcium, Blood 10.2 mg/dL (8.5-10.1); Creatinine, Blood 1.71 mg/dL (0.60-1.20); Globulin, Blood 3.1 g/dL (2.2-4.0); Potassium, Blood 4.9 mmol/L (3.5-5.5)
[2024-07-17] MEDS ORDERED: Aspirin 325 MG Tab PO ONE (10:55)
[2024-07-17] MEDS ORDERED: FLU VACC TS2024-25(6MOS UP)/PF 45 MCG/0.5 ML SYRINGE IM SCH (13:05)
--- NOTE | 2024-07-17 14:59 | NUR ---
RECEIVED REPORT FROM JOAN ANNA IN ED.
[2024-07-17 15:43] VITALS: BP 124/61
[2024-07-17] MEDS ORDERED: Sodium Chloride 0.45% 1,000 ML IV SCH (16:45)
--- NOTE | 2024-07-17 18:36 | NUR ---
SHIFT SUMMARY UNABLE TO ASSESS ORIENTATION CORRECTLY DUE TO WORD SALAD. WHEN ASKED LOCATION, STATED "[facility]", WHEN ASKED DATE, STATED "MY IS IN THE [facility]". PURE WICK IN PLACE DUE TO LIMITED RANGE OF MOTION DURING TURNS. PT NPO, RUNNING HALF NS AT 125ML/HR. BED ALARM ACTIVE. BED IN LOWEST POSITION, CALL LIGHT WITHIN REACH.
[2024-07-17] MEDS ORDERED: CefTRIAXone Sodium 2,000 MG in NS 100 ML IV SCH (19:30)
[2024-07-17 22:11] VITALS: BP 123/67
--- NOTE | 2024-07-17 22:28 | NUR ---
NURSING NOTE: PT WOKEN UP FOR VITALS ~2200 WAS AOX4 AND SPEAKING SLOWLY BUT NORMALLY. NO WORD SALAD LIKE PT WAS SPEAKING AT SHIFT CHANGE. PT REPORTS JUST FEELING TIRED AND WEAK. BED SIDE SPEECH EVAL PERFORMED AND PT PASSED WITH NO COMPLICATIONS. CONTINUING CARE.
[2024-07-18] MEDS ORDERED: Diazepam 2 MG Tab PO PRN (05:35)
--- NOTE | 2024-07-18 05:41 | NUR ---
SHIFT SUMMARY: PT AOX4 AT THIS TIME. AT SHIFT CHANGE WAS ALERT AND ORIENTED BUT SPEAKING IN WORD SALAD. PT WAS ABLE TO ARTICULATE SENTENCES AND COMMUNICATE PROPERLY DURING VITALS WITHOUT ISSUE. ASKED FOR SOME WATER AND DENIES HAVING ANY TROUBLE BREATHING OR SWALLOWING. BEDSIDE SWALLOW STUDY PERFORMED AND PT SWALLOWED WATER WITHOUT ISSUE. PROVIDER NOTIFED, STATED THAT IT WAS OKAY TO HAVE SMALL SIPS OF CLEAR LIQUIDS AND ICE CHIPS TOLERATED. HAS HAD NO ISSUES WITH ASPIRATION. PT WANTED TO VOID IN URINAL, MALE PUREWICK REMOVED AND PT ABLE TO SIT SELF UP IN BED BUT WAS UNABLE TO VOID. STATED "DIDNT NEED TO GO THAT BAD". LATER IN THE NIGHT, PT ATTEMPTED TO USE THE URINAL AGAIN, THIS TIME STANDING WITH MINIMAL ASSISTANCE. UNABLE TO VOID AT THIS TIME. BLADDER SCANNED SHOWED 587, PT THEN INSISTED ON TRYING TO USE THE TOILET AND WAS ABLE TO AMBULATE WITH MINIMAL ASSISTANCE. STEADY GAIT. WAS ABLE TO VOID INTO TOILET. COMPLAINS OF PAIN IN THE R HEEL, NO WOUND NOTICED PT EQUATED IT TO NERVE PAIN. COMPLAINS OF MUSCLE SPASMS AND VISABLE TWITCHING IN L HAND THAT PT STATED HE WASNT DOING. PROVIDER NOTIFIED AND MEDICATION ORDERED. PT IS RESTING IN BED, BED IN LOWEST POSITION, CALL LIGHT IN REACH. CONTINUING CARE.
[2024-07-18 05:54] VITALS: BP 109/59
[2024-07-18 06:00] LABS: BASOPHILS ABSOLUTE AUTO 0.05 K/mm3 (0.00-0.23); BASOPHILS PERCENT AUTO 0 % (0-2); EOSINOPHILS PERCENT AUTO 1 % (0-6); Hematocrit 38.6 % (37.0-53.0); Hemoglobin 13.5 g/dL (13.5-17.5); IMMATURE GRAN ABSOLUTE AUTO 0.05 K/mm3 (0.00-0.10); IMMATURE GRAN PERCENT AUTO 0 % (0-1); LYMPHOCYTES ABSOLUTE AUTO 2.48 K/mm3 (0.84-5.20); LYMPHOCYTES PERCENT AUTO 16 % (21-46); MONOCYTES ABSOLUTE AUTO 1.12 K/mm3 (0.16-1.47); MONOCYTES PERCENT AUTO 7 % (4-13); Mean Corpuscular HGB 31.8 pg (26.0-34.0); Mean Corpuscular Volume 91 fL (80-100); Mean Platelet Volume 10.7 fL (9.1-12.4); NEUTROPHILS ABSOLUTE AUTO 11.98 K/mm3 (1.96-9.15); NEUTROPHILS PERCENT AUTO 76 % (41-73); Platelet Count 239 K/mm3 (150-400); RDW Coefficient Variation 12.6 % (11.7-14.2); RDW Standard Deviation 41.1 fL (35.1-46.3); Red Blood Cell Count 4.25 M/mm3 (4.30-5.90); White Blood Cell Count 15.78 K/mm3 (4.00-11.30)
[2024-07-18 06:26] LABS: Albumin, Blood 3.8 g/dL (3.4-5.0); Albumin/Globulin Ratio 1.2 (0.8-1.8); Bilirubin, Total 0.7 mg/dL (0.1-1.0); Bun/Creatinine Ratio 32.5 (12.0-20.0); Calcium, Blood 9.4 mg/dL (8.5-10.1); Creatinine, Blood 1.14 mg/dL (0.60-1.20); Globulin, Blood 3.1 g/dL (2.2-4.0); Magnesium, Blood 2.2 mg/dL (1.6-2.4); Potassium, Blood 4.2 mmol/L (3.5-5.5); Total Protein, Blood 6.9 g/dL (6.4-8.2)
[2024-07-18 07:49] VITALS: BP 125/64
[2024-07-18] MEDS ORDERED: Heparin Sodium 5000 Units/ML 1ML MDV SC SCH (09:00)
[2024-07-18] MEDS ORDERED: GABA300 PO (11:16)
[2024-07-18] MEDS ORDERED: Insulin Human Lispro 100 Units/ML 3ML Syringe SC SCH (11:30)
[2024-07-18 11:55] VITALS: BP 114/58
[2024-07-18] MEDS ORDERED: Venlafaxine HCl 75 MG CapCR PO SCH (12:00)
[2024-07-18] MEDS ORDERED: LORazepam 1 MG Tab PO ONE (13:05)
[2024-07-18] MEDS ORDERED: Furosemide 20 MG Tab PO ONE (13:10)
--- NOTE | 2024-07-18 15:04 | NUR ---
pt having a lot of anxiety, notifed Dr. Matta, recieved order for ativan, this was given, slept for a short time, then was in panic again. got him in the shower, linen changed, with him during shower for safety, He does have a temp of 100.2, fan on in room. wants to laydown for a bit. offererd to have him walk out in the [place] because he's feeling a bit couped up room. call light in reach, at bedside.
[2024-07-18 15:46] VITALS: BP 132/67
--- NOTE | 2024-07-18 18:22 | NUR ---
pt calmer this evening. resting quietly in bed, spouce went home, no further changes this shift. call light in reach.
[2024-07-18 19:26] VITALS: BP 125/65
[2024-07-18] MEDS ORDERED: NS 250 ML IV PRN (20:15)
[2024-07-18] MEDS ORDERED: Gabapentin 300 MG Cap PO SCH (21:00)
[2024-07-18 23:20] VITALS: BP 145/68
[2024-07-19 03:25] VITALS: BP 120/66
--- NOTE | 2024-07-19 05:23 | NUR ---
SHIFT SUMMARY PT A&0 X4 WITH NORMAL SPEECH. PT WITH LOW-GRADE TEMP THROUGH THE NIGHT. T-MAX 100.0. IV ANTIBIOTIC INFUSED PER ORDER. PT DENIES PAIN. PT WITH C/O ANXIETY/ AGITATION/ MUSCLE "TWITCHING"- MEDICATED WITH VALIUM PER EMAR. PT WITH GENERALIZED, NONPITTING EDEMA. PT SLEPT INTERMITTENTLY THROUGH THE NIGHT. BED IN LOWEST POSITION, CALL LIGHT WITHIN REACH, SIDERAILS UP X2.
[2024-07-19 06:17] LABS: BASOPHILS ABSOLUTE AUTO 0.04 K/mm3 (0.00-0.23); BASOPHILS PERCENT AUTO 0 % (0-2); EOSINOPHILS ABSOLUTE AUTO 0.09 K/mm3 (0.00-0.68); EOSINOPHILS PERCENT AUTO 1 % (0-6); Hematocrit 34.5 % (37.0-53.0); Hemoglobin 12.3 g/dL (13.5-17.5); IMMATURE GRAN ABSOLUTE AUTO 0.06 K/mm3 (0.00-0.10); IMMATURE GRAN PERCENT AUTO 1 % (0-1); LYMPHOCYTES ABSOLUTE AUTO 1.69 K/mm3 (0.84-5.20); LYMPHOCYTES PERCENT AUTO 14 % (21-46); MONOCYTES ABSOLUTE AUTO 0.98 K/mm3 (0.16-1.47); MONOCYTES PERCENT AUTO 8 % (4-13); Mean Corpuscular HGB 31.7 pg (26.0-34.0); Mean Corpuscular HGB Conc 35.7 g/dL (31.5-36.5); Mean Corpuscular Volume 89 fL (80-100); Mean Platelet Volume 10.1 fL (9.1-12.4); NEUTROPHILS ABSOLUTE AUTO 9.23 K/mm3 (1.96-9.15); NEUTROPHILS PERCENT AUTO 76 % (41-73); Platelet Count 171 K/mm3 (150-400); RDW Coefficient Variation 12.2 % (11.7-14.2); RDW Standard Deviation 39.3 fL (35.1-46.3); Red Blood Cell Count 3.88 M/mm3 (4.30-5.90); White Blood Cell Count 12.09 K/mm3 (4.00-11.30)
[2024-07-19 06:41] LABS: Albumin, Blood 3.5 g/dL (3.4-5.0); Anion Gap 12 mmol/L (3-11); Blood Urea Nitrogen 29 mg/dL (8-24); Bun/Creatinine Ratio 33.5 (12.0-20.0); CO2, Blood 22 mmol/L (21-32); Calcium, Blood 8.7 mg/dL (8.5-10.1); Chloride, Blood 106 mmol/L (98-108); Creatinine, Blood 0.87 mg/dL (0.60-1.20); Glomerular Filtration Rate 104 (60-); Glucose, Blood 194 mg/dL (70-99); Phosphorus, Blood 2.6 mg/dL (2.5-4.9); Potassium, Blood 3.9 mmol/L (3.5-5.5); Sodium, Blood 136 mmol/L (136-145)
[2024-07-19 07:54] VITALS: BP 134/66
[2024-07-19] MEDS ORDERED: Ibuprofen 600 MG Tab PO ONE (08:10)
[2024-07-19] MEDS ORDERED: Acetaminophen 500 MG Tab PO ONE (08:10)
[2024-07-19] MEDS ORDERED: Venlafaxine HCl 75 MG CapCR PO SCH (09:00)
[2024-07-19] MEDS ORDERED: VISBIOME 112.51 EACH PO (09:08)
[2024-07-19] MEDS ORDERED: CEFP200 PO (09:08)
--- NOTE | 2024-07-19 13:06 | NUR ---
PT DISCHARGED TO HOME. ALL VALUABLES RETURNED AND SENT HOME WITH THE PT. DISCHARGE INSTRUCTIONS PROVIDED AND EDUCATED ON AT TIME OF DISCHARGE.
== END 2024-07-19 10:15 | disposition home or self-care (01) | DRG 92 ==
LOC: ER 08:40 → ERHOLD 13:04 → MEDS 13:04 → ENPENDDIS 07-19 08:46 → MEDS 07-19 10:15
PROVIDERS: Emergency Medicine; ADMIT Family Medicine
DX: R47.01 Aphasia (principal); G93.40 Encephalopathy, unspecified; I67.89 Other cerebrovascular disease; N17.9 Acute kidney failure, unspecified; D72.829 Elevated white blood cell count, unspecified; E86.0 Dehydration; I10 Essential (primary) hypertension; E66.01 Morbid (severe) obesity due to excess calories; F43.23 Adjustment disorder with mixed anxiety and depressed mood; M19.90 Unspecified osteoarthritis, unspecified site; F41.0 Panic disorder [episodic paroxysmal anxiety]; E11.65 Type 2 diabetes mellitus with hyperglycemia; E78.5 Hyperlipidemia, unspecified; Z96.653 Presence of artificial knee joint, bilateral; Z86.718 Personal history of other venous thrombosis and embolism; Z88.8 Allergy status to other drugs, medicaments and biological substances; Z79.85 Long-term (current) use of injectable non-insulin antidiabetic drugs; Z68.31 Body mass index [BMI] 31.0-31.9, adult
CPT/HCPCS: 36415; 70450; 70551; 80053; 80069; 82947; 83735; 84100; 85025; 92523; 93005; 93010; 94760; 94762; 96374; 96375; 99285-25; A9270; J0696; J0780; J1200; J1644; J7030; J7050